=== PATIENT | male | born 1955 | race Caucasian/White ===

== ENCOUNTER 2020-07-06 08:28 | Inpatient (IN) | payer OTHER ==
[~2020-07-06] VITALS: Ht 175.3 cm; Wt 78.0 kg
[2020-07-06] MEDS ORDERED: ZOCOR20 MG PO (08:44)
[2020-07-06] MEDS ORDERED: CIALIS10 MG PO (08:45)
[2020-07-06] MEDS ORDERED: SYMBICORT 16010.2 GM IH (08:45)
== END 2020-07-09 19:49 | disposition home or self-care (01) | DRG 689 ==
LOC: ER 08:28 → SEC-K 15:38 → SURH 15:38
PROVIDERS: ADMIT Internal Medicine; ATTEND Internal Medicine
PROC: 4A12X4Z Monitoring of Cardiac Electrical Activity, External Approach (ICD-10-PCS; principal; 2020-07-06)
PROC: BW24ZZZ Computerized Tomography (CT Scan) of Chest and Abdomen (ICD-10-PCS; 2020-07-06)
PROC: B24BYZZ Ultrasonography of Heart with Aorta using Other Contrast (ICD-10-PCS; 2020-07-06)
DX: N39.0 Urinary tract infection, site not specified (principal); Q21.3 Tetralogy of Fallot; N41.0 Acute prostatitis; N40.0 Benign prostatic hyperplasia without lower urinary tract symptoms; E78.5 Hyperlipidemia, unspecified; I10 Essential (primary) hypertension; R06.00 Dyspnea, unspecified; Z95.0 Presence of cardiac pacemaker; I71.2 Thoracic aortic aneurysm, without rupture; B96.20 Unspecified Escherichia coli [E. coli] as the cause of diseases classified elsewhere; Z20.822 Contact with and (suspected) exposure to COVID-19

== ENCOUNTER 2024-08-29 09:44 | Inpatient (IN) | payer OTHER ==
[~2024-08-29] VITALS: Ht 172.7 cm; Wt 72.6 kg
[~2024-08-29 09:44] MED LIST: CIALIS10 MG PO; SYMBICORT 16010.2 GM IH; ZOCOR20 MG PO
[2024-08-29] MEDS ORDERED: ROSUVASTATIN CA10 MG PO (10:45)
[2024-08-29] MEDS ORDERED: JARDIANCE10 MG PO (10:46)
[2024-08-29] MEDS ORDERED: 0.9 % SODIUM CHLORIDE 1,000 ML IV STA (10:55)
[2024-08-29] MEDS ORDERED: CEFTRIAXONE SODIUM 1,000 MG VIAL IV ONE (11:30)
[2024-08-29] MEDS ORDERED: CEFTRIAXONE SODIUM 1,000 MG VIAL ONE (11:44)
[2024-08-29 11:58] LABS: BASO % 0.6 % (0.1-1.2); HEMATOCRIT 40.5 % (40.1-51.0); HEMOGLOBIN 13.2 g/dL (13.7-17.5); LYMPH # 0.94 (1.18-3.74); LYMPH % 13.2 % (19.3-53.1); MEAN CORPUSCULAR HEMOGLOBIN 27.8 pg (25.6-32.2); MONO # 0.47 (0.24-0.82); MONO % 6.6 % (4.7-12.5); NEUT # 5.63 (1.56-6.13); PLATELET COUNT 326 K/uL (163-369); RED BLOOD COUNT 4.74 M/uL (4.63-6.08); RED CELL DISTRIBUTION WIDTH 14.3 % (11.6-14.4)
[2024-08-29 12:02] LABS: PH,URINE 5.5 (5.0-8.0); URINE APPEARANCE Cloudy; URINE BILIRRUBIN Negative (NEGATIVE); URINE BLOOD Large; URINE COLOR Yellow; URINE KETONE Negative (NEGATIVE); URINE LEUKOCYTE Moderate; URINE NITRATE Negative; URINE UROBILINOGEN 0.2 E.U./dl
[2024-08-29 12:03] LABS: URINE BACTERIA 187.2 uL (0.0-1933); URINE CAST 13.99 uL (0.0-1.40); URINE RBC 458.4 uL (0.0-20.8)
[2024-08-29 12:58] LABS: URINE CRYSTALS FEW /HPF; URINE GLUCOSE >=1000 MG/DL (NEGATIVE); URINE PROTEIN 100 (NEGATIVE)
[2024-08-29 17:18] LABS: ALBUMIN 2.4 gm/dL (3.4-5.0); BILIRUBIN TOTAL 0.35 mg/dL (0.3-1.2); CREATININE SERUM 1.44 mg/dL (0.70-1.30); GFR 48.78; GLOBULINA 4.6 G/DL (2.4-3.5); POTASSIUM 4.93 mEq/L (3.5-5.1)
[2024-08-29] MEDS ORDERED: TAMSULOSIN HCL 0.4 MG CAP PO SCH (19:26)
[2024-08-29] MEDS ORDERED: FAMOTIDINE/PF 20 MG in 0.9 % SODIUM CHLORIDE 8 ML IV PUSH SCH (19:26)
[2024-08-29] MEDS ORDERED: RINGERS SOLUTION,LACTATED 1,000 ML IV SCH (19:30)
[2024-08-29] MEDS ORDERED: ACETAMINOPHEN 500 MG GEL..CAP PO PRN (19:30)
[2024-08-29] MEDS ORDERED: MEROPENEM 500 MG/VIAL VIAL IV SCH (21:00)
[2024-08-29] MEDS ORDERED: FAMOTIDINE/PF 20 MG/2 ML VIAL ONE (22:22)
[2024-08-29] MEDS ORDERED: TAMSULOSIN HCL 0.4 MG CAP PO ONE (22:22)
[2024-08-29 22:35] LABS: INR 1.35; PARTIAL THROMBOPLASTIN TIME 27.9 SECONDS (22.0-34.0); PROTHROMBIN TIME 14.4 SECONDS (9.0-11.5)
[2024-08-29 23:05] LABS: C-REACTIVE PROTEIN 4.56 MG/DL (0.00-0.29); PROSTATIC SPECIFIC ANTIGEN 15.6 NG/ML (0.010-4.00)
[2024-08-30 03:04] VITALS: BP 134/75; O2SAT 96
[2024-08-30] MEDS ORDERED: SODIUM CHLORIDE 0.45 % 1,000 ML IV SCH (08:45)
[2024-08-30] MEDS ORDERED: ROSUVASTATIN CALCIUM 10 MG TABLET PO SCH (09:00)
[2024-08-30 09:44] VITALS: BP 130/75; O2SAT 98
[2024-08-30 17:35] VITALS: BP 104/62; O2SAT 99
[2024-08-30] MEDS ORDERED: MAGNESIUM HYDROXIDE 30 ML BLIST.PACK PO ONE (21:15)
[2024-08-30] MEDS ORDERED: LACTULOSE 20 G/30 ML BLIST.PACK PO ONE (21:15)
[2024-08-30] MEDS ORDERED: MINERAL OIL 30 ML BLIST.PACK PO ONE (21:15)
[2024-08-31 00:12] VITALS: BP 99/61; O2SAT 96
[2024-08-31 05:34] LABS: BASO % 0.7 % (0.1-1.2); HEMATOCRIT 39.8 % (40.1-51.0); HEMOGLOBIN 12.9 g/dL (13.7-17.5); LYMPH # 1.18 (1.18-3.74); LYMPH % 19.3 % (19.3-53.1); MEAN CORPUSCULAR HEMOGLOBIN 27.6 pg (25.6-32.2); MONO # 0.41 (0.24-0.82); MONO % 6.7 % (4.7-12.5); NEUT # 4.45 (1.56-6.13); NEUT % 72.8 % (34.0-71.1); PLATELET COUNT 284 K/uL (163-369); RED BLOOD COUNT 4.68 M/uL (4.63-6.08); RED CELL DISTRIBUTION WIDTH 14.5 % (11.6-14.4)
[2024-08-31 05:59] LABS: ALBUMIN 2.6 gm/dL (3.4-5.0); BILIRUBIN TOTAL 0.66 mg/dL (0.3-1.2); CALCIUM 8.6 mg/dL (8.5-10.1); CREATININE SERUM 1.38 mg/dL (0.70-1.30); GFR 51.24; GLOBULINA 3.8 G/DL (2.4-3.5); MAGNESIUM 1.6 mg/dL (1.8-2.4); PHOSPHOROUS 3.7 mg/dL (2.5-4.9); POTASSIUM 4.92 mEq/L (3.5-5.1); TOTAL PROTEIN 6.4 gm/dL (6.4-8.2)
[2024-08-31] MEDS ORDERED: 0.9 % SODIUM CHLORIDE 1,000 ML IV SCH (06:30)
[2024-08-31] MEDS ORDERED: PHENAZOPYRIDINE HCL 100 MG TABLET PO SCH (09:00)
[2024-08-31 10:16] VITALS: BP 112/65; O2SAT 97
[2024-08-31] MEDS ORDERED: RINGERS SOLUTION,LACTATED 1,000 ML IV SCH (10:30)
[2024-08-31] MEDS ORDERED: MAGNESIUM SULFATE IN WATER 50 ML IV NR (11:00)
[2024-08-31 15:25] VITALS: BP 113/62; O2SAT 96
[2024-08-31] MEDS ORDERED: DOCUSATE SODIUM 100MG CAP PO SCH (17:00)
[2024-08-31] MEDS ORDERED: MINERAL OIL 30 ML BLIST.PACK PO NR (17:00)
[2024-08-31] MEDS ORDERED: HYDROCORTISONE 2.5% 30 GM TUBE RECTAL SCH (17:00)
[2024-08-31] MEDS ORDERED: LACTULOSE 20 G/30 ML BLIST.PACK PO NR (17:00)
[2024-09-01 00:25] VITALS: BP 122/70; O2SAT 95
[2024-09-01 05:10] LABS: BASO % 0.4 % (0.1-1.2); HEMOGLOBIN 12.9 g/dL (13.7-17.5); LYMPH # 1.13 (1.18-3.74); LYMPH % 16.7 % (19.3-53.1); MEAN CORPUSCULAR HEMOGLOBIN 27.9 pg (25.6-32.2); MONO # 0.41 (0.24-0.82); NEUT # 5.17 (1.56-6.13); NEUT % 76.3 % (34.0-71.1); PLATELET COUNT 273 K/uL (163-369); RED BLOOD COUNT 4.62 M/uL (4.63-6.08); RED CELL DISTRIBUTION WIDTH 14.5 % (11.6-14.4)
[2024-09-01 05:54] LABS: ALBUMIN 2.6 gm/dL (3.4-5.0); BILIRUBIN TOTAL 0.73 mg/dL (0.3-1.2); CALCIUM 8.6 mg/dL (8.5-10.1); CREATININE SERUM 1.11 mg/dL (0.70-1.30); GFR 65.88; GLOBULINA 3.5 G/DL (2.4-3.5); POTASSIUM 4.82 mEq/L (3.5-5.1); TOTAL PROTEIN 6.1 gm/dL (6.4-8.2)
[2024-09-01 10:20] VITALS: BP 127/71; O2SAT 98
[2024-09-01] MEDS ORDERED: LACTULOSE 20 G/30 ML BLIST.PACK PO STA (10:35)
[2024-09-01] MEDS ORDERED: MAGNESIUM HYDROXIDE 30 ML BLIST.PACK PO STA (10:36)
[2024-09-01] MEDS ORDERED: MINERAL OIL 30 ML BLIST.PACK PO STA (10:36)
[2024-09-01 16:50] VITALS: BP 113/73
[2024-09-02 00:10] VITALS: BP 100/60; O2SAT 98
[2024-09-02 09:56] VITALS: BP 107/67; O2SAT 96
[2024-09-02] MEDS ORDERED: TAMS0.4C PO (12:54)
[2024-09-02] MEDS ORDERED: INTESTINEX680 M1 PO (12:55)
[2024-09-02] MEDS ORDERED: PYRIDIUM100 M1 PO (13:14)
== END 2024-09-02 15:32 | disposition home or self-care (01) | DRG 690 ==
LOC: ER 09:44 → MEDJ 19:38 → MEDI 08-30 19:06
PROVIDERS: Emergency Medicine; General Practice; Internal Medicine; ADMIT Internal Medicine; ATTEND Internal Medicine
PROC: BW21ZZZ Computerized Tomography (CT Scan) of Abdomen and Pelvis (ICD-10-PCS; principal; 2024-08-29)
PROC: BW21YZZ Computerized Tomography (CT Scan) of Abdomen and Pelvis using Other Contrast (ICD-10-PCS; 2024-08-29)
PROC: BW4GZZZ Ultrasonography of Pelvic Region (ICD-10-PCS; 2024-08-30)
PROC: B24BYZZ Ultrasonography of Heart with Aorta using Other Contrast (ICD-10-PCS; 2024-08-31)
DX: N39.0 Urinary tract infection, site not specified (principal); N17.9 Acute kidney failure, unspecified; I50.20 Unspecified systolic (congestive) heart failure; N41.9 Inflammatory disease of prostate, unspecified; N40.0 Benign prostatic hyperplasia without lower urinary tract symptoms; I10 Essential (primary) hypertension